=== PATIENT | female | born 1990 | race Caucasian/White ===

== ENCOUNTER 2017-02-21 21:56 | Inpatient (IN) | payer BC ==
[~2017-02-21] VITALS: Ht 162.6 cm; Wt 67.3 kg
[2017-02-21 22:38] VITALS: BP 114/71
[2017-02-21] MEDS: D5%-LACTATED RINGERS 1,000 ML IV SCH (23:24)
[2017-02-21] MEDS ORDERED: OXYTOCIN 30U/ 0.9% NaCL 500ML 500 ML IV ONE (23:24)
[2017-02-21] MEDS: LACTATED RINGERS 1,000 ML IV SCH (23:24)
[2017-02-21] MEDS ORDERED: NEWBORN KIT ONE (23:28)
[2017-02-21] MEDS ORDERED: CALCIUM CARBONATE 500 MG TAB.CHEW PO PRN (23:30)
[2017-02-21] MEDS ORDERED: ALUMINUM/MAG/SIMETHICONE 30 ML UDC PO PRN (23:30)
[2017-02-21] MEDS ORDERED: SODIUM CITRATE/CITRIC ACID 30 ML UDC PO PRN (23:30)
[2017-02-21] MEDS ORDERED: FENTANYL PF 100 MCG/2ML IV PRN (23:30)
[2017-02-21] MEDS ORDERED: METOCLOPRAMIDE 5 MG/ML, 2ML IVPush PRN (23:30)
[2017-02-21] MEDS ORDERED: TERBUTALINE 1 MG/ML, 1ML IVPush PRN ×2 (23:30)
[2017-02-21] MEDS ORDERED: ONDANSETRON 2MG/ML, 2ML IVPush PRN (23:30)
[2017-02-21] MEDS ORDERED: FENTANYL PF 100 MCG/2ML IVPush PRN (23:30)
[2017-02-21] MEDS: PLEASE ENTER ALLERGIES MC SCH ×2 (23:45)
[2017-02-21 23:46] LABS: HEMATOCRIT 37.7 % (34.6-47.8); HEMOGLOBIN 13.1 g/dL (11.7-16.4); WHITE BLOOD COUNT 11.2 x10^3/uL (3.4-10)
[2017-02-22] MEDS ORDERED: OXYTOCIN 30U/ 0.9% NaCL 500ML 500 ML ONE ×2 (00:02→16:01)
[2017-02-22] MEDS ORDERED: PENICILLIN GK 5,000,000 UNITS in DEXTROSE 5% 100 ML IVPB ONE (00:30)
[2017-02-22] MEDS: PLEASE ENTER ALLERGIES MC SCH ×36 (00:45→17:45)
[2017-02-22] MEDS ORDERED: FENTANYL/BUPIV./NS/PF 250 ML EPIDCONT ONE ×2 (00:48→00:50)
[2017-02-22] MEDS ORDERED: LIDOCAINE 1%, 20ML ONE (00:50)
[2017-02-22] MEDS ORDERED: FENTANYL/BUPIV./NS/PF 250 ML EPIDCONT SCH (01:52)
[2017-02-22] MEDS: LACTATED RINGERS 1,000 ML IV SCH ×5 (01:52→17:52)
[2017-02-22] MEDS ORDERED: EPHEDRINE 50 MG/ML, 1ML IVPush PRN (02:00)
[2017-02-22] MEDS ORDERED: NALOXONE 0.4 MG/ML, 1ML IVPush PRN (02:00)
[2017-02-22] MEDS ORDERED: LACTATED RINGERS 1,000 ML IVBOLUS PRN (02:00)
[2017-02-22] MEDS: PENICILLIN GK 2,500,000 UNITS in DEXTROSE 5% 100 ML IVPB SCH ×5 (04:11→16:30)
[2017-02-22] MEDS: D5%-LACTATED RINGERS 1,000 ML IV SCH ×2 (07:24→15:24)
[2017-02-22] MEDS ORDERED: MISOPROSTOL 200 MCG TABLET PR PRN (12:30)
[2017-02-22] MEDS ORDERED: ONDANSETRON 2MG/ML, 2ML IV PRN (12:30)
[2017-02-22] MEDS ORDERED: OXYcodone IR 5MG TABLET PO PRN (12:30)
[2017-02-22] MEDS ORDERED: ACETAMINOPHEN 325 MG TABLET PO PRN (12:30)
[2017-02-22] MEDS ORDERED: IBUPROFEN 600 MG TABLET ONE (14:38)
[2017-02-22] MEDS: IBUPROFEN 600 MG TABLET PO PRN ×2 (14:50→20:52)
[2017-02-22] MEDS ORDERED: OXYcodone/APAP 5/325MG TABLET ONE (16:17)
[2017-02-22] MEDS: OXYcodone/APAP 5/325MG TABLET PO PRN ×2 (16:19→20:52)
[2017-02-22] MEDS: OXYTOCIN 30U/ 0.9% NaCL 500ML 500 ML IV SCH ×2 (16:21→22:30)
[2017-02-22 16:55] VITALS: BP 95/53
[2017-02-22 19:56] VITALS: BP 102/62
[2017-02-22] MEDS: DOCUSATE 100 MG CAPSULE PO PRN (20:52)
[2017-02-23 00:28] VITALS: BP 98/50
[2017-02-23] MEDS: IBUPROFEN 600 MG TABLET PO PRN ×2 (05:34→16:50)
[2017-02-23 07:28] VITALS: BP 96/61
[2017-02-23] MEDS: OXYTOCIN 30U/ 0.9% NaCL 500ML 500 ML IV SCH (08:30)
[2017-02-23] MEDS: DOCUSATE 100 MG CAPSULE PO PRN ×2 (08:42→21:44)
[2017-02-23] MEDS: PRENATAL VIT/IRON/FA 1 EACH TABLET PO SCH (08:42)
[2017-02-23] MEDS: OXYcodone/APAP 5/325MG TABLET PO PRN ×2 (16:50→21:44)
[2017-02-23 19:56] LABS: HEMATOCRIT 29.9 % (34.6-47.8); WHITE BLOOD COUNT 10.8 x10^3/uL (3.4-10)
[2017-02-23 21:00] VITALS: BP 105/69
[2017-02-24] MEDS: IBUPROFEN 600 MG TABLET PO PRN ×2 (01:52→07:37)
[2017-02-24] MEDS: OXYcodone/APAP 5/325MG TABLET PO PRN (01:52)
[2017-02-24 07:20] VITALS: BP 94/48
[2017-02-24] MEDS: PRENATAL VIT/IRON/FA 1 EACH TABLET PO SCH (07:37)
[2017-02-24] MEDS: DOCUSATE 100 MG CAPSULE PO PRN (07:37)
[2017-02-24] MEDS ORDERED: IBUP-1222 PO (08:11)
== END 2017-02-24 12:45 | disposition home or self-care (01) | DRG 775 ==
LOC: LAB 21:56 → LDIP 23:22 → 2NW 02-22 16:37
PROVIDERS: ADMIT Obstetrics & Gynecology; ATTEND Obstetrics & Gynecology
PROC: 10E0XZZ Delivery of Products of Conception, External Approach (ICD-10-PCS; principal; 2017-02-23)
PROC: 0W8NXZZ Division of Female Perineum, External Approach (ICD-10-PCS; 2017-02-23)
PROC: 3E0R3BZ Introduction of Anesthetic Agent into Spinal Canal, Percutaneous Approach (ICD-10-PCS; 2017-02-23)
PROC: 00HU33Z Insertion of Infusion Device into Spinal Canal, Percutaneous Approach (ICD-10-PCS; 2017-02-23)
DX: O69.81X0 Labor and delivery complicated by cord around neck, without compression, not applicable or unspecified (principal); E06.3 Autoimmune thyroiditis; Z37.0 Single live birth; O99.824 Streptococcus B carrier state complicating childbirth; O99.284 Endocrine, nutritional and metabolic diseases complicating childbirth; Z3A.39 39 weeks gestation of pregnancy
CPT/HCPCS: 36415; 85025; 86900; J2540; J3490; J2590; J3010; J7120

== ENCOUNTER 2018-03-04 09:23 | Inpatient (IN) | payer BC ==
[~2018-03-04] VITALS: Ht 162.6 cm; Wt 72.7 kg
[~2018-03-04 09:23] MED LIST: IBUP-1222 PO
[2018-03-04] MEDS ORDERED: D5%-LACTATED RINGERS 1,000 ML IV SCH (09:33)
[2018-03-04] MEDS ORDERED: OXYTOCIN 30U/ 0.9% NaCL 500ML 500 ML IV ONE (09:33)
[2018-03-04] MEDS ORDERED: FENTANYL PF 100 MCG/2ML IVPush PRN (10:00)
[2018-03-04] MEDS ORDERED: METOCLOPRAMIDE 5 MG/ML, 2ML IVPush PRN (10:00)
[2018-03-04] MEDS ORDERED: TERBUTALINE 1 MG/ML, 1ML SQ PRN (10:00)
[2018-03-04] MEDS ORDERED: PENICILLIN GK 5,000,000 UNITS in DEXTROSE 5% 100 ML IVPB ONE (10:00)
[2018-03-04] MEDS: LACTATED RINGERS 1,000 ML IV SCH ×2 (10:00→11:00)
[2018-03-04] MEDS ORDERED: FENTANYL PF 100 MCG/2ML IV PRN (10:00)
[2018-03-04 10:05] LABS: BASOPHILS # (AUTO) 0.01 x10^3/uL (0-0.1); BASOPHILS % (AUTO) 0 % (0-1); EOSINOPHILS # (AUTO) 0.03 x10^3/uL (0-0.4); EOSINOPHILS % (AUTO) 0 % (1-7); LYMPHOCYTES # (AUTO) 1.63 x10^3/uL (1-3.4); LYMPHOCYTES % (AUTO) 18 % (22-44); MD NO; MEAN CORPUSCULAR HEMOGLOBIN 31.3 pg (27.0-34.8); MEAN CORPUSCULAR HGB CONC 33.7 g/dL (32.4-35.8); MEAN CORPUSCULAR VOLUME 92.7 fL (80-100); MEAN PLATELET VOLUME 7.8 fL (7.4-10.4); MONOCYTES # (AUTO) 0.82 x10^3/uL (0.2-0.8); MONOCYTES % (AUTO) 9 % (2-9); NEUTROPHILS # (AUTO) 6.72 x10^3/uL (1.8-6.8); NEUTROPHILS % (AUTO) 73 % (42-75); PLATELET COUNT 262 x10^3/uL (130-400); RED BLOOD COUNT 4.02 x10^6/uL (3.82-5.3); RED CELL DISTRIBUTION WIDTH 13.4 % (9.6-15.2)
[2018-03-04] MEDS ORDERED: BUPIVACAINE 0.25% ONE (11:02)
[2018-03-04] MEDS ORDERED: FENTANYL/BUPIV./NS/PF 250 ML EPIDCONT SCH (11:21)
[2018-03-04] MEDS ORDERED: FENTANYL PF 500 MCG, BUPIVACAINE/PF 0.5%, 30ML 62.5 ML in SODIUM CHLORIDE 0.9% 177.5 ML EPIDCONT SCH (11:30)
[2018-03-04] MEDS: OXYTOCIN 30U/ 0.9% NaCL 500ML 500 ML IV SCH ×2 (11:32→21:32)
[2018-03-04] MEDS ORDERED: EPHEDRINE 50 MG/ML, 1ML ONE (11:50)
[2018-03-04] MEDS ORDERED: MISOPROSTOL 200 MCG TABLET PR PRN (12:00)
[2018-03-04] MEDS ORDERED: OXYcodone/APAP 5/325MG TABLET PO PRN (12:00)
[2018-03-04] MEDS ORDERED: MEASLES,MUMPS&RUBELLA VACC/PF 0.5 ML SQ PRN (12:00)
[2018-03-04] MEDS ORDERED: MAGNESIUM HYDROXIDE 8%, 30ML UDC PO PRN (12:00)
[2018-03-04] MEDS ORDERED: CALCIUM CARBONATE 500 MG TAB.CHEW PO PRN (12:00)
[2018-03-04] MEDS ORDERED: ACETAMINOPHEN 325 MG TABLET PO PRN ×2 (12:00)
[2018-03-04] MEDS ORDERED: DIPH,PERTUSS(ACELL),TET VAC/PF NC IM-VACC PRN (12:00)
[2018-03-04] MEDS ORDERED: RHOGAM FROM BLOOD BANK 1 NOTE EA IM/IV ONE (12:00)
[2018-03-04] MEDS ORDERED: ONDANSETRON 2MG/ML, 2ML IV PRN (12:00)
[2018-03-04] MEDS ORDERED: LACTATED RINGERS 1,000 ML IV SCH (12:19)
[2018-03-04] MEDS ORDERED: LACTATED RINGERS 1,000 ML IVBOLUS PRN (12:30)
[2018-03-04] MEDS ORDERED: EPHEDRINE 50 MG/ML, 1ML IVPush PRN (12:30)
[2018-03-04] MEDS: PENICILLIN GK 2,500,000 UNITS in DEXTROSE 5% 100 ML IVPB SCH ×2 (14:00→18:28)
[2018-03-04] MEDS ORDERED: NEWBORN KIT ONE (14:06)
[2018-03-04] MEDS ORDERED: OXYTOCIN 30U/ 0.9% NaCL 500ML 500 ML ONE (15:19)
[2018-03-04] MEDS ORDERED: OXYTOCIN 30U/ 0.9% NaCL 500ML 500 ML IV PRN (15:29)
[2018-03-04] MEDS ORDERED: MISOPROSTOL 200 MCG TABLET ONE ×2 (17:26→17:27)
[2018-03-04] MEDS ORDERED: IBUPROFEN 600 MG TABLET ONE (20:24)
[2018-03-04] MEDS ORDERED: OXYcodone/APAP 5/325MG TABLET ONE (20:24)
[2018-03-04] MEDS: OXYcodone/APAP 5/325MG TABLET PO PRN (20:27)
[2018-03-04] MEDS: IBUPROFEN 600 MG TABLET PO PRN (20:27)
[2018-03-04 22:31] VITALS: BP 103/61
[2018-03-05] VITALS (7 sets, daily range): BP systolic 90–108; BP diastolic 57–64
[2018-03-05] MEDS: IBUPROFEN 600 MG TABLET PO PRN ×3 (02:36→15:57)
[2018-03-05] MEDS: OXYcodone/APAP 5/325MG TABLET PO PRN ×6 (02:36→20:39)
[2018-03-05 05:33] LABS: BASOPHILS # (AUTO) 0.07 x10^3/uL (0-0.1); BASOPHILS % (AUTO) 1 % (0-1); EOSINOPHILS # (AUTO) 0.06 x10^3/uL (0-0.4); EOSINOPHILS % (AUTO) 1 % (1-7); LYMPHOCYTES # (AUTO) 1.84 x10^3/uL (1-3.4); LYMPHOCYTES % (AUTO) 18 % (22-44); MD NO; MEAN CORPUSCULAR HEMOGLOBIN 31.8 pg (27.0-34.8); MEAN CORPUSCULAR HGB CONC 33.9 g/dL (32.4-35.8); MEAN CORPUSCULAR VOLUME 93.6 fL (80-100); MEAN PLATELET VOLUME 7.8 fL (7.4-10.4); MONOCYTES # (AUTO) 1.15 x10^3/uL (0.2-0.8); MONOCYTES % (AUTO) 11 % (2-9); NEUTROPHILS # (AUTO) 6.98 x10^3/uL (1.8-6.8); NEUTROPHILS % (AUTO) 69 % (42-75); PLATELET COUNT 201 x10^3/uL (130-400); RED BLOOD COUNT 2.86 x10^6/uL (3.82-5.3); RED CELL DISTRIBUTION WIDTH 13.4 % (9.6-15.2)
[2018-03-05] MEDS: OXYTOCIN 30U/ 0.9% NaCL 500ML 500 ML IV SCH (07:32)
[2018-03-05] MEDS: DOCUSATE 100 MG CAPSULE PO PRN (08:35)
[2018-03-05] MEDS: PRENATAL VIT/IRON/FA 1 EACH TABLET PO SCH (08:35)
[2018-03-06] MEDS: IBUPROFEN 600 MG TABLET PO PRN ×2 (03:08→09:09)
[2018-03-06] MEDS: OXYcodone/APAP 5/325MG TABLET PO PRN ×3 (03:08→13:24)
[2018-03-06] MEDS: PRENATAL VIT/IRON/FA 1 EACH TABLET PO SCH (09:00)
[2018-03-06] MEDS: DOCUSATE 100 MG CAPSULE PO PRN (09:09)
[2018-03-06] MEDS ORDERED: OXYC-302 PO (11:01)
== END 2018-03-06 13:57 | disposition home or self-care (01) | DRG 807 ==
LOC: LDIP 09:23 → 2NW 22:25
PROVIDERS: ADMIT Obstetrics & Gynecology; ATTEND Obstetrics & Gynecology
PROC: 10E0XZZ Delivery of Products of Conception, External Approach (ICD-10-PCS; principal; 2018-03-04)
PROC: 0KQM0ZZ Repair Perineum Muscle, Open Approach (ICD-10-PCS; 2018-03-04)
PROC: 3E0R3BZ Introduction of Anesthetic Agent into Spinal Canal, Percutaneous Approach (ICD-10-PCS; 2018-03-04)
PROC: 00HU33Z Insertion of Infusion Device into Spinal Canal, Percutaneous Approach (ICD-10-PCS; 2018-03-04)
PROC: 10907ZC Drainage of Amniotic Fluid, Therapeutic from Products of Conception, Via Natural or Artificial Opening (ICD-10-PCS; 2018-03-04)
DX: O99.824 Streptococcus B carrier state complicating childbirth (principal); Z37.0 Single live birth; O99.03 Anemia complicating the puerperium; D64.9 Anemia, unspecified; Z3A.37 37 weeks gestation of pregnancy; O70.1 Second degree perineal laceration during delivery
CPT/HCPCS: 36415; 85025; 86850; 86900; G0378; J2540; J2590; J7120